=== PATIENT | female | born 1985 | race Caucasian/White ===

== ENCOUNTER → 2024-12-01 16:01 | Outpatient (BNVA) | payer OTHER, SELFPAY | PROVIDERS: Family Provider Nurse Practitioner Family; PCP Nurse Practitioner Family; Visit Provider Nurse Practitioner Family | DX: N39.0 Urinary tract infection, site not specified (principal) | CPT/HCPCS: 81003; 87077; 87086; 87184 ==

== ENCOUNTER 2025-03-09 08:09 | Emergency (ER) | payer OTHER, SELFPAY ==
--- NOTE | 2025-03-09 08:11 | ED_ITS ---
HPI - Abdominal Pain 2 General: Chief Complaint: Vaginal Bleeding Stated Complaint: abd pain, n/v Time Seen by Provider: 03/09/25 08:10 History of Present Illness: 39-year-old female presents emergency ro om with pelvic pain and cramping. Her period began this morning she had gone to the bathroom done a few of the things from the house and began to have sudden onset of severe right flank pain and cramping radiating into her back. Only came to the room she is thrashing on the table unable to find a comfortable position complaining of severe pain in the right flank. She denies any dysuria urgency or frequency. She is able to isolate the pain more to the suprapubic region radiating up into the right flank. She has not noticed any hematuria. She does have a known history of kidney stones. Associated Symptoms: Denies chills, dysuria and fever(s) Related Data Home Medications ?Medication ?Instructions ?Recorded ?Confirmed ibuprofen 200 mg tablet (Advil) 800 mg PO Q6H PRN Feve r Or Pain 03/09/25 03/09/25 Previous Rx's ?Medication ?Instructions ?Recorded diclofenac sodium 75 mg 75 mg PO Q12H PRN pain #20 t abs 03/09/25 tablet,delayed release hydrocodone 5 mg-acetaminophen 325 1 tab PO Q6H PRN pa in #7 tabs 03/09/25 mg tablet Allergies Allergy/AdvReac Type Severity Reaction Status Date / Time No Known Allergies Allergy Verified 03/09/25 08:35 Review of Systems 2 Const: Denies: fever(s) or chills Card: Denies: chest pain Resp: Denies: dyspnea GI: Reports: abdominal pain : Reports: flank pain (Right), vaginal bleeding and pelvic pain; Denies: dysuria, urinary frequency or urinary urgency Musc: Denies: neck pain or back pain Skin/Breast: Denies: rash PFSH ED 2 PFSH: Medical History Pharyngitis Upper respiratory infection Hx of renal calculi Urinary tract infection Family History Other Cancer Diabetes Hypertension Social History Smoking and tobacco/nicotine status: never used tobacco/nicotine Substance/Drug Use: never Household members: significant other and children Housing: House Current occupational status: employed 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 [place] Physical Exam 2 Const: COMMON NORMALS: no acute distress GENERAL APPEARANCE: cooperative and comfortable ORIENTATION/CONSCIOUSNESS: Yes awake, Yes oriented to person, Yes oriented to place and Yes oriented to time HENMT: COMMON NORMALS: normocephalic, atraumatic and hearing grossly normal bilaterally HEAD & SCALP: normocephalic and atraumatic Resp: COMMON NORMALS: normal respiratory effort, No retractions, No use of accessory muscles and clear to auscultation bilaterally AUSCULTATION: clear to auscultation bilaterally Cardio: COMMON NORMALS: regular rate, regular rhythm and No murmurs present (Cardio) RATE: regular rate RHYTHM: regular rhythm GI: COMMON NORMALS: Soft to palpation and No hepatosplenomegaly present A USCULTATION: Yes normoactive bowel sounds PALPATION: Yes Soft to palpation, No Tenderness to palpation present (GI), No Guarding due to palpation present (GI) and Yes No hepatosplenomegaly present Extremity: COMMON NORMALS: normal to inspection, capillary refill normal, no clubbing, cyanosis or edema, no calf tenderness and no pedal edema Neuro: SENSORIUM/ORIENTATION: Yes oriented to person, Yes oriented to place and Yes oriented to time Skin: COMMON NORMALS: no rashes or lesions noted GENERAL SKIN EXAM: no rashes or lesions noted Course 2 Vital Signs: Vital signs: Vital Signs Temperature 98.1 F 03/09/25 08:29 Pulse Rate 62 03/09/25 12:14 Respiratory Rate 16 03/09/25 08:29 Blood Pressure 140/82 03/09/25 09:19 Pulse Oximetry 96 03/09/25 12:14 Oxygen Delivery Me thod Room Air 03/09/25 09:19 MDM - Abdominal Pain Medical Decision Making Mild elevation in white count. According to CT report it difficult admitted for any appendix that is because the radiologist she does not feel there is any sign of inflammation or indications of acute appendicitis in that region on repeat exam she is not having any significant right lower quadrant pain at this time. Urgency episodes have improved with medications given there was some fluid in the pelvis suspect she ruptured an ovarian cyst patient given diclofenac hydrocodone to use as needed follow-up with her primary care doctor. Medical Records I reviewed the patient's medical records. Lab Data I reviewed the patient's lab results. 03/09/25 09:00 03/09/25 09:00 Labs/Radiology: Radiology Impressions Abdomen/Pelvis CT 03/09/25 10:29 IMPRESSION: 1. No hydronephrosis in either kidney. No obstructing renal or ureteral calculi. 2. Trace free fluid in the cul-de-sac. 3. Small esophageal hiatal hernia. 4. No other acute findings. Laboratory Results WBC 13.61 10^3/uL (3.29-11.43) H 03/09/25 09:00 RBC 4.86 10^6/uL (3.85-5.65) 03/09/25 09:00 Hgb 13.80 g/dL (11.27-16.99) 03/09/25 09:00 Hct 43.2 % (36-47) 03/09/25 09:00 MCV 88.9 fl (85-98) 03/09/25 09:00 MCH 28.4 pg (27-33) 03/09/25 09:00 MCHC 31.9 g/dL (30-55) 03/09/25 09:00 RDW 12.8 % (12.1-15.1) 03/09/25 09:00 Plt Count 389 10^3/cmm (157-399) 03/09/25 09:00 MPV 8.8 fL (7.4-10.4) 03/09/25 09:00 Neut % (Auto) 70.1 % 03/09/25 09:00 Lymph % (Auto) 22.0 % 03/09/25 09:00 [place] % (Auto) 6.5 % 03/09/25 09:00 Eos % (Auto) 0.6 % 03/09/25 09:00 Baso % (Auto) 0.4 % 03/09/25 09:00 Neut # (Auto) 9.53 10^3/uL (1.8-7.7) H 03/09/25 09:00 Lymph # (Auto) 3.0 10^3/uL (0.8-4.8) 03/09/25 09:00 [place] # (Auto) 0.9 10^3/uL (0.2-0.9) 03/09/25 09:00 Eos # (Auto) 0.1 10^3/uL (0.0-0.8) 03/09/25 09:00 Baso # (Auto) 0.1 10^3/uL (0.0-0.1) 03/09/25 09:00 Nucleated RBC % (auto) 0 % 03/09/25 09:00 Nucleated RBCs # 0.0 /100WBC 03/09/25 09:00 Sodium 139 mmol/L (136-145) 03/09/25 09:00 Potassium 4.3 mmol/L (3.5-5.1) 03/09/25 09:00 Chloride 105 mmol/L (98-107) 03/09/25 09:00 Carbon Dioxide 19 mmol/L (22-29) L 03/09/25 09:00 Anion Gap 19.3 (5-19) H 03/09/25 09:00 BUN 12 mg/dL (6-20) 03/09/25 09:00 Creatinine 0.7 mg/dL (0.5-0.9) 03/09/25 09:00 GFR Calculation 94.2 mL/min (90-130) 03/09/25 09:00 Glucose 98 mg/dL (65-115) 03/09/25 09:00 Calculated Osmolality 288 mOsm/kg (285-295) 03/09/25 09:00 Calcium 9.1 mg/dL (8.5-10.5) 03/09/25 09:00 Total Bilirubin 0.5 mg/dL (0.15-1.2) 03/09/25 09:00 AST 12 U/L (0-32) 03/09/25 09:00 ALT 17 U/L (0-33) 03/09/25 09:00 Alkaline Phosphatase 89 U/L (35-105) 03/09/25 09:00 Total Protein 7.2 g/dL (6.6-8.7) 03/09/25 09:00 Albumin 3.9 g/dL (3.5-5.2) 03/09/25 09:00 Globulin 3.3 g/dL (1.3-4.6) 03/09/25 09:00 Lipase 15 U/L (13-60) 03/09/25 09:00 HCG, Qual Negative (Negative) 03/09/25 09:00 Urine Color Yellow (Yellow) 03/09/25 09:32 Urine Appearance Clear (CLEAR) 03/09/25 09:32 Urine pH 8.0 (5-7) A 03/09/25 09:32 Ur Specific [place] 1.031 (1.005-1.030) H 03/09/25 09:32 Urine Protein Trace (Negative) A 03/09/25 09:32 Urine Glucose (UA) Negative (Normal) 03/09/25 09:32 Urine Ketones Trace (Negative) 03/09/25 09:32 Urine Blood Negative (Negative) 03/09/25 09:32 Urine Nitrate Negative (Negative) 03/09/25 09:32 Urine Bilirubin Negative (Negative) 03/09/25 09:32 Urine Urobilinogen 1.0 mg/dL (Negative) 03/09/25 09:32 Ur Leukocyte Esterase Negative (Negative) 03/09/25 09:32 Urine RBC 3-5 /hpf (0-2) 03/09/25 09:32 Urine WBC 0-5 /hpf (0-5) 03/09/25 09:32 Ur Squamous Epith Cells 0-5 /hpf (0-5) 03/09/25 09:32 Amorphous Sediment Not Reportable 03/09/25 09:32 Urine Bacteria None seen /hpf (NONE) 03/09/25 09:32 Hyaline Casts 9.91 /lpf 03/09/25 09:32 Urine Yeast Trace /hpf 03/09/25 09:32 All radiology interpretation(s) finalized by discharge Discharge Plan Discharge Patient Disposition: Home Clinical Impression: Menometrorrhagia, Ovarian cyst rupture Condition: Stable Prescriptions: New hydrocodone-acetaminophen 5-325 mg tablet 1 tab PO Q6H PRN (Reason: pain) Qty: 7 0RF diclofenac sodium 75 mg tablet,delayed release (DR/EC) 75 mg PO Q12H PRN (Reason: pain) Qty: 20 0RF No Action ibuprofen [Advil] 200 mg Tablet 800 mg PO Q6H PRN (Reason: Fever Or Pain) Discharge Orders: Discharge ED (Routine); Ordered 03/09/25 Ordered By: Asif Castillo Referrals: CHAPIS Snider, RADIO ENGINEER [Primary Care Provider, Family Practice] Zaire Das FNP [Nurse Practitioner, Family Practice] Discharge Diet: Usual diet Discharge Activity: Increase activity as tolerated Patient Instructions: Opioid Safety, Pain Management, Patient Portal & Uma Instructions Activity Restrictions/Additional Instructions: Thank you for choosing [facility] for your healthcare needs today. It is very important that you follow up as instructed or that you return to the Emergency Department should you have concerns or if your condition changes or worsens in any way. You were seen in the emergency room pelvic pain and cramping. Urine showed trace blood but there was no evidence of a kidney stone on the CT. There was a small amount of fluid in the pelvis this could be from ruptured ovarian cyst given your sudden onset of symptoms suspect that is what the cause of the pain. You are given pain and medicines to use as needed follow-up has not worsening symptoms. Print Language: Vietnamese Coding Level of Care Code ED Correctional Guard for Beverly Stewart
--- OUTSIDE RECORDS SUMMARY | 2025-03-09 08:16 | XMS_ITS | Encounter Summary ---
Author Organization [facility] Address [address] [place] [address] Care Team Providers Care Microbiology Quality Control Technician Name Role Phone Omkar Sepulveda MD Primary Care Provider [phone] Encounter Details Date Type Department Care Team (Latest Contact Info) Description 04/04/2005 Outpatient [facility] Ear, Nose and Throat [address] [place] 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 Gender Identity Not on file Sexual Orientation Not on file documented as of this encounter Plan of Treatment Not on file documented as of this encounter Visit Diagnoses Diagnosis Follow-up examination, following unspecified surgery- Primary documented in this encounter Additional Health Concerns Infection Onset Date Last Indicated Resolved Time R/O COVID-19 05/22/2020 05/22/2020 05/24/2020 3:45 AM CDT R/O COVID-19 08/13/2020 08/13/2020 08/15/2020 2:45 AM 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
--- OUTSIDE RECORDS SUMMARY | 2025-03-09 08:16 | XMS_ITS | Encounter Summary ---
Author Organization [facility] Address [address] [place] [address] Care Team Providers Care Economics Lecturer Name Role Phone Omkar Sepulveda MD Primary Care Provider [phone] Encounter Details Date Type Department Care Team (Latest Contact Info) Description 11/11/2000 Outpatient Historical [facility] [place] [address] [address] Ibrahima Patel DO NO ADDRESS ON FILE Acute upper respiratory infections of unspecified site (Primary Dx) Social History Tobacco Use Types Packs/Day Years Used Date Smoking Tobacco: Never Assessed Comments Unknown Sex and Gender Information Value Date Recorded Sex Assigned at Not on file 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 Gender Identity Not on file Sexual Orientation Not on file documented as of this encounter Plan of Treatment Not on file documented as of this encounter Visit Diagnoses Diagnosis Acute upper respiratory infections of unspecified site- Primary documented in this encounter Additional Health Concerns Infection Onset Date Last Indicated Resolved Time R/O COVID-19 05/22/2020 05/22/2020 05/24/2020 3:45 AM CDT R/O COVID-19 08/13/2020 08/13/2020 08/15/2020 2:45 AM ROTOR WINDER documented as of this encounter Care Teams Economics Lecturer Relationship Specialty Start Date End Date Omkar Sepulveda MD [address] [address] PCP - General Family Practice 03/03/20 documented as of this encounter
--- OUTSIDE RECORDS SUMMARY | 2025-03-09 08:16 | XMS_ITS | Encounter Summary ---
Author Organization [facility] Address [address] [place] [address] Care Team Providers Care Director Business Integration Name Role Phone Omkar Sepulveda MD Primary Care Provider [phone] Encounter Details Date Type Department Care Team (Late st Contact Info) Description 11/01/2007 Outpatient Historical [facility] [place] [address] [facility] [address] [place] [address] Iris Carmona NP NO ADDRESS ON FILE Social History Tobacco Use Types Packs/Day Years Used Date Smoking Tobacco: Never Assessed Comments Unknown Sex and Gender Information Value Date Recorded Sex Assigned at Not on file 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 Pulse: 0. Not dictated. BP: 110/72. Temperature is 97.2. ALLERGIES: PROACTIVE AND CHOCOLATE (RASH). CHIEF COMPLAINT: Swollen lymph nodes and right ear pain. SUBJECTIVE: The patient was up all night with right ear pain, and finally had called her mother during the night. Mother said to put heat on it and it did help to relieve some of the pain. She also took Motrin and was able to get some sleep. She noticed that if she is around a loud speaker it really hurts her ears. OBJECTIVE: GENERAL: Reviewed the nurse's note and concur. HEENT, NECK: Examination shows the right TM is red. It is dull. It is full. The left TM was also red but not as full. Oropharynx is without erythema or exudate. Neck is supple .She does have 1+ cervical adenopathy in the anterior chain, right greater than left. No posterior nodes were palpated. HEART: Normal sinus rate and rhythm. LUNGS: CTA. IMPRESSION: Bilateral otitis media with sinusitis. PLAN: 1. Mother has Vicodin at home that she will give her for pain. 2. We called Zithromax 250 mg Z-Chriss to [facility] to take as directed with food beginning 11/02/2007. 3. Gave her an injection of Rocephin 1 gram here. 4. Suggested mucous relief sinus tablets twice a day for 2 weeks. 5. I want to recheck her at the end of next week when she has finished her antibiotics by mouth. Noadditional cause. Make sure the ear is healing. 6. Otherwise she will return p.r.n. Dejah Carmoan RN-ONEIL Patel D.O. [facility] Electronically Signed by Dejah Carmona RN-ONEIL 11/03/2007 09:12 , rose Jacinto Document #: [id number] cc: documented in this encounter Plan of Treatment Not on file documented as of this encounter Visit Diagnoses Not on filedocumented in this encounter Additional Health Concerns Infection Onset Date Last Indicated Resolved Time R/O COVID-19 05/22/2020 05/22/2020 05/24/2020 3:45 AM CDT R/O COVID-19 08/13/2020 08/13/2020 08/15/2020 2:45 AM FIBREGLASS GUN HAND documented as of this encounter Care Teams Director Business Integration Relationship Specialty Start Date End Date Omkar Sepulveda MD [address] [facility] [address] [place] [phone] PCP - General Family Practice 03/03/20 documented as of this encounter
--- OUTSIDE RECORDS SUMMARY | 2025-03-09 08:16 | XMS_ITS | Encounter Summary ---
Author Organization [facility] Address [address] [place] [address] Care Team Providers Care Market Development Director Name Role Phone Omkar Sepulveda MD Primary Care Provider [phone] Encounter Details Date Type Department Care Team (Latest Contact Info) Description 03/21/2005 Outpatient Historical [facility] Ear, Nose and Throat [address] [place] 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 Gender Identity Not on file Sexual Orientation Not on file documented as of this encounter Plan of Treatment Not on file documented as of this encounter Visit Diagnoses Diagnosis Hypertrophy tonsils/adenoids- Primary Hypertrophy of tonsil with adenoids Chronic tonsillitis documented in this encounter Additional Health Concerns Infection Onset Date Last Indicated Resolved Time R/O COVID-19 05/22/2020 05/22/2020 05/24/2020 3:45 AM CDT R/O COVID-19 08/13/2020 08/13/2020 08/15/2020 2:45 AM SENIOR USER EXPERIENCE ARCHITECT documented as of this encounter Care Teams Market Development Director Relationship Specialty Start Date End Date Omkar Sepulveda MD [address] [facility] [address] [place] [phone] PCP - General Family Practice 03/03/20 documented as of this encounter
--- OUTSIDE RECORDS SUMMARY | 2025-03-09 08:16 | XMS_ITS | Clinical Summary ---
Author Organization [facility] Address [address] [place] [address] Care Team Providers Care Lease Broker Name Role Phone Omkar Sepulveda MD Primary Care Provider +1 [phone] Allergies Active Allergy Reactions Criticality Noted Date Comments Amoxicillin Other (See Comments) 09/21/2018 She gets a bad yeast infection every time she takes amoxicillin doesn't ever want this Nalbuphine Rash,Itching Medium 11/12/2010 Medications ibuprofen (MOTRIN) 200 mg tablet Take 200 mg by mouth every 6 hours as needed for Pain, Mild. Active acetaminophen (TYLENOL) 500 mg tablet Take 500 mg by mouth every 6 hours as needed for Pain, Mild / Temperature. Active rizatriptan (MAXALT SCALE ATTENDANT) 10 mg Tablet, Rapid Dissolve DISSOLVE 1 TABLET ON THE TONGUE EVERY 2 HOURS NEEDED FOR MIGRAINE 12 Tablet 2 0 Active mzzfoa-otfscvru-br ylase DR DOUGLAS) 24,000-76,000-120, 000 unit capsuleIndications :Pancreatic insufficiency Take 2 Capsules by mouth 3 times daily with meals. 180 Capsule 1 0 Active etonogestrel-Ethin yl Estradiol (NuvaRing) 0.12-0.015 mg/24 hr RingIndications:En counter for surveillance of vaginal ring hormonal contraceptive device Insert one ring for 3 weeks, remove for 1 week,repeat again. 3 Ring 3 0 Active promethazine-dextr omethorphan (PHENERGAN-DM) 6.25-15 mg/5 mL syrupIndications:V iral illness Take 5 mL by mouth every 6 hours as needed for Cough. 120 mL 1 0 Active cyclobenzaprine (FLEXERIL) 10 mg tablet Take 1 Tablet (10 mg) by mouth 2 times daily as needed for Spasm. 40 Tablet 1 Active ketorolac tromethamine (TORADOL) 10 mg tablet Take 1 Tablet (10 mg) by mouth every 8 hours as needed for Pain. 20 Tablet 1 Active Active Problems Problem Noted Date Diagnosed Date Back pain 10/05/2012 Hypertrophy of breast 10/05/2012 Depression, 01/21/2011 Supervision of normal first 12/01/2008 Common migraine Immunizations Immunization Administration Dates Next Due (TDVAX)(7 YRS UP) TETANUS AN D DIPHTHERIA TOXOIDS, ADSORBED (2 LF OF TETANUS TOXOID AND 2 LF OF DIPHTHERIA TOXOID), 0.5ML (PF), IM 02/07/2008 Hepatitis B Vaccine 12/21/1998,08/10/1998,1997 INFLUENZA VACCINE QUADRIVALE NT 3 YR UP PF IM 06/20/2019 Influenza Seasonal Unspecifi ed Formulation IM 05/17/2018,07/03/2017 Family History Medical History Relation Name Comments Healthy Brother Healthy Father Heart Disease Maternal Grandfather Breast Cancer Maternal Grandmother Diabetes Maternal Grandmother Healthy Mother Migraines Mother Hypertension Paternal Grandfather Heart Disease Paternal Grandmother Other Paternal Grandmother brain a neurism Relation Name Status Comments Brother Alive Father Alive Maternal Grandfather Maternal Grandmother Alive Mother Alive Paternal Grandfather Alive Paternal Grandmother Alive Social History Tobacco Use Types Packs/Day Years Used Date Smoking Tobacco: Former Cigarettes 0.3 10 0 10/23/2008 - 10/23/2018 Smokeless Tobacco: Never Comments:Quit the second october Alcohol Use Standard Drinks/Week Comments No 0 (1 standard drink = 0.6 oz pure alcohol) week ends until the october, drank vodka Comments No Sex and Gender Information Value Date Recorded Sex Assigned at Not on file 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 Gender Identity Not on file Sexual Orientation Not on file Occupation Industry Job Start Date Job End Date Not on file Not on file Not on file Not on file Last Filed Vital Signs Vital Sign Reading Time Taken Comments Blood Pressure 140/72 12/21/2020 11:02 AM CDT Pulse 122 12/21/2020 11:02 AM CDT Temperature 35.8 C (96.5 F) 12/21/2020 11:02 AM CDT Respiratory Rate 31 12/21/2020 11:0 2 AM CDT Oxygen Saturation 99% 12/21/2020 11: 02 AM CDT Inhaled Oxygen Concentration - - Weight 109.2 kg (240 lb 12.8 oz) 2020 11:02 AM CDT Height 167.6 cm (5' 6 ) 12/21/2020 11:0 2 AM CDT Body Mass Index 38.87 12/21/2020 11:02 AM CDT Plan of Treatment Health Maintenance Due Date Last Done Comments DTAP/TDAP/TD VACCINES (1 - Tdap) 02/08/2008 02/07/2008 HPV/Cotest (21-29) 2008 CERVICAL CANCER SCREENING 2017 HPV/Cotest (30-65) 2017 PAP SMEAR 2017 12/09/2010, 05/08, 12/05/2008, Additional history exists Preventative Visit-Managed Medicaid 03/08/2020 03/07/2019 INFLUENZA VACCINE (#1) 2024 , 06/20/2019, 05/17/2018, Additional history exists HEPATITIS B VACCINES Completed 12/21/1998, 08/10/1998, 06/26/1998 HPV VACCINES Aged Out No longer eligi ble based on patient's age to complete this topic Procedures Procedure Name Priority Date/Time Associated Diagnosis Comments CERV/VAG CYTOPATH, THIN PREP Routine 12/09/2010 8:25 PM CDT from Last 3 Months or Most Recently Relevant to Health Maintenance Results * CERVICAL OR VAGINAL CYTOPATH, THIN PREP (12/09/2010 8:25 PM CDT) PATHOLOGY/CYT OLOGY REPORT [facility] Dept [address] [facility] [address] Patient: EVA LIRACI Accn No: [id number] , [id number] Collected: 12/09/2010 8:25:00 PM All cases except those with a DP prefix are performed by pathologists from [facility] at [facility]. Case type DP is performed by Dr. Jose Alfredo Way, [facility], [facility] [place] [address], [address] [place] [address] (CLIA #[id number]) (Ph. [phone]). CYTOLOGY PUBLIC EVENTS FACILITIES RENTAL MANAGER FINAL REPORT - - THIN PREP PAP History Specimen Type: Endocervical LMP: NOVEMBER 2009 Previous Pap History: WNL Specimen Adequacy Satisfactory for interpretation. The smear lacks endocervical or metaplastic cells. Diagnosis EPITHELIAL CELL ABNORMALITIES. Low grade squamous intraepithelial lesion(LSIL), mild dysplasia present (JENNIFER I). Software Quality Manager/ EDR ANDREEA Pathologist: 12/17/10 Completed by: Elaina Ye M.D. (Electronically signed by) 12/18/10 Comment Colposcopy and/or biopsy as clinically indicated. See www.[facility]p.org for suggested follow-up. Important Info About PAP Smears HPV Testing off the Thin Prep vial can be done as a means of further evaluating the significance of a Thin Prep Report. For information about ordering the HPV test phone Cytology at . Treatment or follow-up recommendations (if any) that are contained within this report are based upon general recommendations as contained in 2001 Consensus Guidelines For Cervical Cytological Abnormalities FREDRICK: December 29, 2001, and are provided as a general guideline rather than as a specific recommendation. Final decisions about the most appropriate treatment and follow-up should be made on an individualized basis by the treating physician in consultation with his/her patient. [facility] 12/09/2010 8:25 PM CDT us Kalin CURIEL PATHOLOGY/CYTOLOGY ORDERABLES Final Result INTERFACE SYSTEM Refer to clinic/hospital department [facility] CLIA# [id number] [address] [place] [address] from Last 3 Months or Most Recently Relevant to Health Maintenance Insurance [facility] [employer] Care Teams Lease Broker Relationship Specialty Start Date End Date Omkar Sepulveda MD [address] [address] PCP - General Family Practice 03/03/20
--- OUTSIDE RECORDS SUMMARY | 2025-03-09 08:16 | XMS_ITS | Encounter Summary ---
Author Organization [facility] Address [address] [place] [address] Care Team Providers Care Crisis Therapist Name Role Phone Omkar Sepulveda MD Primary Care Provider +1 [phone] Encounter Details Date Type Department Care Team (Latest Contact Info) Description 09/11/2003 Outpatient Historical [facility] Medicine [address] [address] Paulo Ahumada MD [address] [address] MED EXAM NEC-ADMIN PURP (Primary Dx) Social History Tobacco Use Types Packs/Day Years Used Date Smoking Tobacco: Never Assessed Comments Unknown Sex and Gender Information Value Date Recorded Sex Assigned at Not on file 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:53 AM FOOD SERVER Gender Identity Not on file Sexual Orientation Not on file documented as of this encounter Plan of Treatment Not on file documented as of this encounter Visit Diagnoses Diagnosis Other general medical examination for administrative purposes- Primary documented in this encounter Additional Health Concerns Infection Onset Date Last Indicated Resolved Time R/O COVID-19 05/22/2020 05/22/2020 05/24/2020 3:45 AM CDT R/O COVID-19 08/13/2020 08/13/2020 08/15/2020 2:45 AM FOOD SERVER documented as of this encounter Care Teams Crisis Therapist Relationship Specialty Start Date End Date Omkar Sepulveda MD [address] [address] PCP - General Family Practice 03/03/20 documented as of this encounter
--- OUTSIDE RECORDS SUMMARY | 2025-03-09 08:16 | XMS_ITS | Encounter Summary ---
Author Organization [facility] Address [address] [place] [address] Care Team Providers Care Correspondence Representative Name Role Phone Omkar Sepulveda MD Primary Care Provider [phone] [phone] Encounter Details Date Type Department Care Team (Latest Contact Info) Description 09/17/2006 Outpatient [facility] Medicine [place] [address] [address] Iris Carmona NP NO ADDRESS ON FILE Adv Eff Med/Biol NEC/NOS (Primary Dx); Unspecified Otitis Media Social History Tobacco Use Types Packs/Day Years Used Date Smoking Tobacco: Never Assessed Comments Unknown Sex and Gender Information Value Date Recorded Sex Assigned at Not on file 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:53 AM DENTAL INSTRUMENT MAKER Gender Identity Not on file Sexual Orientation Not on file documented as of this encounter Plan of Treatment Not on file documented as of this encounter Visit Diagnoses Diagnosis Unspecified adverse effect of other drug, medicinal and biological substance(995.29)- Primary Unspecified adverse effect of other drug, medicinal and biological substance Unspecified otitis media documented in this encounter Additional Health Concerns Infection Onset Date Last Indicated Resolved Time R/O COVID-19 05/22/2020 05/22/2020 05/24/2020 3:45 AM CDT R/O COVID-19 08/13/2020 08/13/2020 08/15/2020 2:45 AM DENTAL INSTRUMENT MAKER documented as of this encounter Care Teams Correspondence Representative Relationship Specialty Start Date End Date Omkar Sepulveda MD [address] [address] PCP - General Family Practice 03/03/20 documented as of this encounter
--- OUTSIDE RECORDS SUMMARY | 2025-03-09 08:16 | XMS_ITS | Patient Health Record ---
Author Organization [facility] Address [address] [place], [place] [address] Care Team Providers Care Audit Analyst Name Role Phone Tomás CORDOBA, Megna Primary Care Provider Keith Martinez MD, Goldy Unavailable [phone] Allergies Allergen (clinical drug ingredient) Drug/Non Drug Allergy documented on EMR Reaction Allergy Type Onset Date Status None or not verifiab le (as is Current Medications) (uncoded) Unknown Allergy Active Reason For Referral No Information Medications Medication SIG (Take, Route, Fr equency, Duration) Notes Start Date End Date Status Maxalt 10 mg 1 tab orally Q2H, prn for 30 day(s) Active Implanon 68 mg 1 ea subcutaneously once for 1 dose(s) Active Problems Problem Type SNOMED Code ICD Code Onset Dates Problem Status W/U Status Risk Notes Problem Sleep dysfunction with sleep stage disturbance (307980500) Dysfunctions associated with sleep stages or arousal from sleep (780.56) Active confirmed Problem Pain in thoracic spine (216815603) Thoracic pain (724.1) Active confirmed Problem 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) Lumbar (w/out myelopathy) intervertebral disc disorder (722.10) Active confirmed Problem Long-term drug therapy (873010322) LONG-TERM USE MEDS NEC (V58.69) Active confirmed r/o substance abuse Problem Spondylolisthesis (962781245) Spondylolisthesis (738.4) Active confirmed Problem Anxiety state (072331142) Anxiety State, other, specified: procedure related (300.09) Active confirmed Problem Displacement of thoracic intervertebral disc without myelopathy (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 [place] [address] [phone] [id number] Adilene Gross Self - patient is the insured Medical (General) History Medical History History ICD Code See prior documentation Surgical History Surgery Date(Month/Year) Tonsillectomy section Moles removed Hospitalization History Reason Date(Month/Year)
--- OUTSIDE RECORDS SUMMARY | 2025-03-09 08:16 | XMS_ITS | Encounter Summary ---
Author Organization [facility] Address [address] [place] [address] Care Team Providers Care Upholsterer Outside Name Role Phone Omkar Sepulveda MD Primary Care Provider [phone] [phone] Encounter Details Date Type Department Care Team (Latest Contact Info) Description 02/06/2005 Outpatient Historical [facility] [address] [place] [address] Lito Gonzales MD NO ADDRESS ON FILE Hypertrophy tonsils/adenoids (Primary Dx); ACUTE TONSILLITIS; CHR TONSILLITIS & ADENOIDITIS Social History Tobacco Use Types Packs/Day Years Used Date Smoking Tobacco: Never Assessed Comments Unknown Sex and Gender Information Value Date Recorded Sex Assigned at Not on file 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:53 AM BALE SEWER Gender Identity Not on file Sexual Orientation Not on file documented as of this encounter Plan of Treatment Not on file documented as of this encounter Visit Diagnoses Diagnosis Hypertrophy tonsils/adenoids- Primary Hypertrophy of tonsil with adenoids Acute tonsillitis Chronic tonsillitis and adenoiditis(474.02) Chronic tonsillitis and adenoiditis documented in this encounter Additional Health Concerns Infection Onset Date Last Indicated Resolved Time R/O COVID-19 05/22/2020 05/22/2020 05/24/2020 3:45 AM CDT R/O COVID-19 08/13/2020 08/13/2020 08/15/2020 2:45 AM BALE SEWER documented as of this encounter Care Teams Upholsterer Outside Relationship Specialty Start Date End Date Omkar Sepulveda MD [address] [address] PCP - General Family Practice 03/03/20 documented as of this encounter
--- OUTSIDE RECORDS SUMMARY | 2025-03-09 08:16 | XMS_ITS | Encounter Summary ---
Author Organization [facility] Address [address] [place] [address] Care Team Providers Care Quality Assurance Supervisor Name Role Phone Omkar Sepulveda MD Primary Care Provider [phone] [phone] Encounter Details Date Type Department Care Team (Latest Contact Info) Description 08/18/2003 Outpatient Historical [facility] Medicine [place] [address] [facility] [address] [place] [address] Paulo Ahumada MD [address] [address] FLU W RESP MANIFEST NEC (Primary Dx); CLASS MIGRAIN W/O MENTN INTRACTABLE Social History Tobacco Use Types Packs/Day Years Used Date Smoking Tobacco: Never Assessed Comments Unknown Sex and Gender Information Value Date Recorded Sex Assigned at Not on file 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:53 AM PASSENGER CAR UPHOLSTERER APPRENTICE Gender Identity Not on file Sexual Orientation Not on file documented as of this encounter Plan of Treatment Not on file documented as of this encounter Visit Diagnoses Diagnosis Influenza with other respiratory manifestations- Primary Migraine with aura, without mention of intractable migraine without mention of status migrainosus documented in this encounter Additional Health Concerns Infection Onset Date Last Indicated Resolved Time R/O COVID-19 05/22/2020 05/22/2020 05/24/2020 3:45 AM CDT R/O COVID-19 08/13/2020 08/13/2020 08/15/2020 2:45 AM PASSENGER CAR UPHOLSTERER APPRENTICE documented as of this encounter Care Teams Quality Assurance Supervisor Relationship Specialty Start Date End Date Omkar Sepulveda MD [address] [phone] PCP - General Family Practice 03/03/20 documented as of this encounter
--- OUTSIDE RECORDS SUMMARY | 2025-03-09 08:16 | XMS_ITS | Encounter Summary ---
Author Organization [facility] Address [address] [place] [address] Care Team Providers Care Associate Account Executive Name Role Phone Omkar Sepulveda MD Primary Care Provider [phone] [phone] Encounter Details Date Type Department Care Team (Latest Contact Info) Description 08/20/1999 Outpatient Historical [facility] Medicine [place] [address] [address] Ibrahima Patel DO NO ADDRESS ON FILE Acute tonsillitis (Primary Dx) Social History Tobacco Use Types Packs/Day Years Used Date Smoking Tobacco: Never Assessed Comments Unknown Sex and Gender Information Value Date Recorded Sex Assigned at Not on file 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:53 AM FOUNDRY PATTERNMAKER Gender Identity Not on file Sexual Orientation Not on file documented as of this encounter Plan of Treatment Not on file documented as of this encounter Visit Diagnoses Diagnosis Acute tonsillitis- Primary documented in this encounter Additional Health Concerns Infection Onset Date Last Indicated Resolved Time R/O COVID-19 05/22/2020 05/22/2020 05/24/2020 3:45 AM CDT R/O COVID-19 08/13/2020 08/13/2020 08/15/2020 2:45 AM FOUNDRY PATTERNMAKER documented as of this encounter Care Teams Associate Account Executive Relationship Specialty Start Date End Date Omkar Sepulveda MD [address] [address] PCP - General Family Practice 03/03/20 documented as of this encounter
--- OUTSIDE RECORDS SUMMARY | 2025-03-09 08:16 | XMS_ITS | Encounter Summary ---
Author Organization [facility] Address [address] [place] [address] Care Team Providers Care Diamond Cleaner Name Role Phone Omkar Sepulveda MD Primary Care Provider [phone] [phone] Encounter Details Date Type Department Care Team (Latest Contact Info) Description 07/15/2007 Outpatient Historical [facility] Medicine [place] [address] [address] Iris Carmona NP NO ADDRESS ON FILE Urinary Tract Infection, Site not Specified (Primary Dx); Abdominal Pain, Right Lower Quadrant; Unspecified Symptom Associated with Female Genital Organs Social History Tobacco Use Types Packs/Day Years Used Date Smoking Tobacco: Never Assessed Comments Unknown Sex and Gender Information Value Date Recorded Sex Assigned at Not on file 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:53 AM BUSINESS INTELLIGENCE DIRECTOR Gender Identity Not on file Sexual Orientation Not on file documented as of this encounter Plan of Treatment Not on file documented as of this encounter Visit Diagnoses Diagnosis Urinary tract infection, site not specified- Primary Abdominal pain, right lower quadrant Unspecified symptom associated with female genital organs documented in this encounter Additional Health Concerns Infection Onset Date Last Indicated Resolved Time R/O COVID-19 05/22/2020 05/22/2020 05/24/2020 3:45 AM CDT R/O COVID-19 08/13/2020 08/13/2020 08/15/2020 2:45 AM BUSINESS INTELLIGENCE DIRECTOR documented as of this encounter Care Teams Diamond Cleaner Relationship Specialty Start Date End Date Omkar Sepulveda MD [address] [address] PCP - General Family Practice 03/03/20 documented as of this encounter
--- OUTSIDE RECORDS SUMMARY | 2025-03-09 08:16 | XMS_ITS | Encounter Summary ---
Author Organization [facility] Address [address] [place] [address] Care Team Providers Care Program Professional Name Role Phone Omkar Sepulveda MD Primary Care Provider [phone] [phone] Encounter Details Date Type Department Care Team (Latest Contact Info) Description 05/29/2004 Outpatient Historical [facility] [address] [phone] Landy Membreno MD NO ADDRESS ON FILE STREP SORE THROAT (Primary Dx) Social History Tobacco Use Types Packs/Day Years Used Date Smoking Tobacco: Never Assessed Comments Unknown Sex and Gender Information Value Date Recorded Sex Assigned at Not on file 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:53 AM OILER BANDER Gender Identity Not on file Sexual Orientation Not on file documented as of this encounter Plan of Treatment Not on file documented as of this encounter Visit Diagnoses Diagnosis Streptococcal sore throat- Primary documented in this encounter Additional Health Concerns Infection Onset Date Last Indicated Resolved Time R/O COVID-19 05/22/2020 05/22/2020 05/24/2020 3:45 AM CDT R/O COVID-19 08/13/2020 08/13/2020 08/15/2020 2:45 AM OILER BANDER documented as of this encounter Care Teams Program Professional Relationship Specialty Start Date End Date Omkar Sepulveda MD [address] [address] PCP - General Family Practice 03/03/20 documented as of this encounter
--- OUTSIDE RECORDS SUMMARY | 2025-03-09 08:16 | XMS_ITS | Encounter Summary ---
Author Organization [facility] Address [address] [place] [address] Care Team Providers Care Marketing Sales Representative Name Role Phone Omkar Sepulveda MD Primary Care Provider [phone] [phone] Encounter Details Date Type Department Care Team (Latest Contact Info) Description 09/04/2005 Outpatient Historical [address] [address] Iris Carmona NP NO ADDRESS ON FILE ACNE NEC (Primary Dx) Social History Tobacco Use Types Packs/Day Years Used Date Smoking Tobacco: Never Assessed Comments Unknown Sex and Gender Information Value Date Recorded Sex Assigned at Not on file 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:53 AM SHEET ROCK TAPER Gender Identity Not on file Sexual Orientation Not on file documented as of this encounter Plan of Treatment Not on file documented as of this encounter Visit Diagnoses Diagnosis Other acne- Primary documented in this encounter Additional Health Concerns Infection Onset Date Last Indicated Resolved Time R/O COVID-19 05/22/2020 05/22/2020 05/24/2020 3:45 AM CDT R/O COVID-19 08/13/2020 08/13/2020 08/15/2020 2:45 AM SHEET ROCK TAPER documented as of this encounter Care Teams Marketing Sales Representative Relationship Specialty Start Date End Date Omkar Sepulveda MD [address] [address] PCP - General Family Practice 03/03/20 documented as of this encounter
--- OUTSIDE RECORDS SUMMARY | 2025-03-09 08:16 | XMS_ITS | Encounter Summary ---
Author Organization [facility] Address [address] [place] [address] Care Team Providers Care Rigger Helper Name Role Phone Omkar Sepulveda MD Primary Care Provider [phone] [phone] Encounter Details Date Type Department Care Team (Latest Contact Info) Description 09/12/2004 Outpatient Historical [facility] Medicine [place] [address] [address] Brynn Lemus, INBOUND SALES MANAGER [address] [place] [phone] STREP SORE THROAT (Primary Dx) Social History Tobacco Use Types Packs/Day Years Used Date Smoking Tobacco: Never Assessed Comments Unknown Sex and Gender Information Value Date Recorded Sex Assigned at Not on file 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:53 AM CLINICAL PSYCHOLOGY TEACHER Gender Identity Not on file Sexual Orientation Not on file documented as of this encounter Plan of Treatment Not on file documented as of this encounter Visit Diagnoses Diagnosis Streptococcal sore throat- Primary documented in this encounter Additional Health Concerns Infection Onset Date Last Indicated Resolved Time R/O COVID-19 05/22/2020 05/22/2020 05/24/2020 3:45 AM CDT R/O COVID-19 08/13/2020 08/13/2020 08/15/2020 2:45 AM CLINICAL PSYCHOLOGY TEACHER documented as of this encounter Care Teams Rigger Helper Relationship Specialty Start Date End Date Omkar Sepulveda MD [address] [phone] PCP - General Family Practice 03/03/20 documented as of this encounter
--- OUTSIDE RECORDS SUMMARY | 2025-03-09 08:16 | XMS_ITS | Encounter Summary ---
Author Organization [facility] Address [address] [place] [address] Care Team Providers Care Record Tester Name Role Phone Omkar Sepulveda MD Primary Care Provider +1 [phone] Encounter Details Date Type Department Care Team (Latest Contact Info) Description 12/17/2005 Outpatient Historical [facility] Medicine [place] [address] [address] Iris Carmona NP NO ADDRESS ON FILE Headache (Primary Dx); Other Diseases of Nasal Cavity and Sinuses Social History Tobacco Use Types Packs/Day Years Used Date Smoking Tobacco: Never Assessed Comments Unknown Sex and Gender Information Value Date Recorded Sex Assigned at Not on file 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:53 AM SHEET ROLLER OPERATOR Gender Identity Not on file Sexual Orientation Not on file documented as of this encounter Plan of Treatment Not on file documented as of this encounter Visit Diagnoses Diagnosis Headache(784.0)- Primary Headache Nasal/sinus dis NEC Other diseases of nasal cavity and sinuses documented in this encounter Additional Health Concerns Infection Onset Date Last Indicated Resolved Time R/O COVID-19 05/22/2020 05/22/2020 05/24/2020 3:45 AM CDT R/O COVID-19 08/13/2020 08/13/2020 08/15/2020 2:45 AM SHEET ROLLER OPERATOR documented as of this encounter Care Teams Record Tester Relationship Specialty Start Date End Date Omkar Sepulveda MD [address] [address] PCP - General Family Practice 03/03/20 documented as of this encounter
--- OUTSIDE RECORDS SUMMARY | 2025-03-09 08:16 | XMS_ITS | Encounter Summary ---
Author Organization [facility] Address [address] [place] [address] Care Team Providers Care Log Pond Worker Name Role Phone Omkar Sepulveda MD Primary Care Provider +1 [phone] Encounter Details Date Type Department Care Team (Latest Contact Info) Description 06/13/2004 Outpatient Historical [facility] Medicine [place] [address] [address] Brynn Lemus, CARD ASSEMBLER [address] [place] [phone] STREP SORE THROAT (Primary Dx) Social History Tobacco Use Types Packs/Day Years Used Date Smoking Tobacco: Never Assessed Comments Unknown Sex and Gender Information Value Date Recorded Sex Assigned at Not on file 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:53 AM SENIOR CUSTOMER SERVICE REPRESENTATIVE Gender Identity Not on file Sexual Orientation Not on file documented as of this encounter Plan of Treatment Not on file documented as of this encounter Visit Diagnoses Diagnosis Streptococcal sore throat- Primary documented in this encounter Additional Health Concerns Infection Onset Date Last Indicated Resolved Time R/O COVID-19 05/22/2020 05/22/2020 05/24/2020 3:45 AM CDT R/O COVID-19 08/13/2020 08/13/2020 08/15/2020 2:45 AM SENIOR CUSTOMER SERVICE REPRESENTATIVE documented as of this encounter Care Teams Log Pond Worker Relationship Specialty Start Date End Date Omkar Sepulveda MD [address] [phone] PCP - General Family Practice 03/03/20 documented as of this encounter
--- OUTSIDE RECORDS SUMMARY | 2025-03-09 08:16 | XMS_ITS | Encounter Summary ---
Author Organization [facility] Address [address] [place] [address] Care Team Providers Care Automobile Upholsterer Apprentice Name Role Phone Omkar Sepulveda MD Primary Care Provider +1 [phone] Encounter Details Date Type Department Care Team (Latest Contact Info) Description 10/26/1998 Outpatient Historical [facility] [address] [address] Ibrahima Patel DO NO ADDRESS ON FILE Contusion of finger (Primary Dx) Social History Tobacco Use Types Packs/Day Years Used Date Smoking Tobacco: Never Assessed Comments Unknown Sex and Gender Information Value Date Recorded Sex Assigned at Not on file 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:53 AM AGRICULTURE DEPARTMENT CHAIR Gender Identity Not on file Sexual Orientation Not on file documented as of this encounter Plan of Treatment Not on file documented as of this encounter Visit Diagnoses Diagnosis Contusion of finger- Primary documented in this encounter Additional Health Concerns Infection Onset Date Last Indicated Resolved Time R/O COVID-19 05/22/2020 05/22/2020 05/24/2020 3:45 AM CDT R/O COVID-19 08/13/2020 08/13/2020 08/15/2020 2:45 AM AGRICULTURE DEPARTMENT CHAIR documented as of this encounter Care Teams Automobile Upholsterer Apprentice Relationship Specialty Start Date End Date Omkar Sepulveda MD [address] [address] PCP - General Family Practice 03/03/20 documented as of this encounter
--- OUTSIDE RECORDS SUMMARY | 2025-03-09 08:16 | XMS_ITS | Encounter Summary ---
Author Organization [facility] Address [address] [place] [address] Care Team Providers Care Equine Intern Name Role Phone Omkar Sepulveda MD Primary Care Provider +1 [phone] Encounter Details Date Type Department Care Team (Latest Contact Info) Description 11/17/2006 Outpatient [facility] Medicine- [address] [place] [phone] Iris Carmona NP NO ADDRESS ON FILE Unspecified Infective Otitis Externa (Primary Dx); Unspecified Otitis Media; Cough Social History Tobacco Use Types Packs/Day Years Used Date Smoking Tobacco: Never Assessed Comments Unknown Sex and Gender Information Value Date Recorded Sex Assigned at Not on file 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:53 AM OPHTHALMIC ASSISTANT Gender Identity Not on file Sexual Orientation Not on file documented as of this encounter Plan of Treatment Not on file documented as of this encounter Visit Diagnoses Diagnosis Infective otitis externa, unspecified- Primary Unspecified otitis media Cough documented in this encounter Additional Health Concerns Infection Onset Date Last Indicated Resolved Time R/O COVID-19 05/22/2020 05/22/2020 05/24/2020 3:45 AM CDT R/O COVID-19 08/13/2020 08/13/2020 08/15/2020 2:45 AM OPHTHALMIC ASSISTANT documented as of this encounter Care Teams Equine Intern Relationship Specialty Start Date End Date Omkar Sepulveda MD [address] [facility] [place] [address] PCP - General Family Practice 03/03/20 documented as of this encounter
--- OUTSIDE RECORDS SUMMARY | 2025-03-09 08:16 | XMS_ITS | Encounter Summary ---
Author Organization [facility] Address [address] [place] [address] Care Team Providers Care Continuous Improvement Coach Name Role Phone Omkar Sepulveda MD Primary Care Provider [phone] [phone] Encounter Details Date Type Department Care Team (Latest Contact Info) Description 12/30/2004 Outpatient Historical [facility] Medicine [place] [address] [phone] Iris Carmona NP NO ADDRESS ON FILE ACUTE TONSILLITIS (Primary Dx) Social History Tobacco Use Types Packs/Day Years Used Date Smoking Tobacco: Never Assessed Comments Unknown Sex and Gender Information Value Date Recorded Sex Assigned at Not on file 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:53 AM ZIPPER MEASURER Gender Identity Not on file Sexual Orientation Not on file documented as of this encounter Plan of Treatment Not on file documented as of this encounter Visit Diagnoses Diagnosis Acute tonsillitis- Primary documented in this encounter Additional Health Concerns Infection Onset Date Last Indicated Resolved Time R/O COVID-19 05/22/2020 05/22/2020 05/24/2020 3:45 AM CDT R/O COVID-19 08/13/2020 08/13/2020 08/15/2020 2:45 AM ZIPPER MEASURER documented as of this encounter Care Teams Continuous Improvement Coach Relationship Specialty Start Date End Date Omkar Sepulveda MD [address] [phone] PCP - General Family Practice 03/03/20 documented as of this encounter
--- OUTSIDE RECORDS SUMMARY | 2025-03-09 08:16 | XMS_ITS | Encounter Summary ---
Author Organization [facility] Address [address] [place] [address] Care Team Providers Care Curb Worker Name Role Phone Omkar Sepulveda MD Primary Care Provider +1 [phone] Encounter Details Date Type Department Care Team (Latest Contact Info) Description 02/24/2001 Outpatient Historical [facility] Medicine [place] [address] [address] Ibrahima Patel DO NO ADDRESS ON FILE Unspecified otitis media (Primary Dx) Social History Tobacco Use Types Packs/Day Years Used Date Smoking Tobacco: Never Assessed Comments Unknown Sex and Gender Information Value Date Recorded Sex Assigned at Not on file 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:53 AM 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 Gender Identity Not on file Sexual Orientation Not on file documented as of this encounter Plan of Treatment Not on file documented as of this encounter Visit Diagnoses Diagnosis Unspecified otitis media- Primary documented in this encounter Additional Health Concerns Infection Onset Date Last Indicated Resolved Time R/O COVID-19 05/22/2020 05/22/2020 05/24/2020 3:45 AM CDT R/O COVID-19 08/13/2020 08/13/2020 08/15/2020 2:45 AM 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 documented as of this encounter Care Teams Curb Worker Relationship Specialty Start Date End Date Omkar Sepulveda MD [address] [address] PCP - General Family Practice 03/03/20 documented as of this encounter
--- OUTSIDE RECORDS SUMMARY | 2025-03-09 08:16 | XMS_ITS | Encounter Summary ---
Author Organization [facility] Address [address] [place] [address] Care Team Providers Care Certification Engineer Name Role Phone Omkar Sepulveda MD Primary Care Provider [phone] [phone] Encounter Details Date Type Department Care Team (Latest Contact Info) Description 03/21/2005 Outpatient [facility] Head and Neck Surgery-[address] [place] [address] [place] [address] Lito Gonzales MD NO ADDRESS ON FILE Hypertrophy tonsils/adenoids (Primary Dx); CHRONIC TONSILLITIS Social History Tobacco Use Types Packs/Day Years Used Date Smoking Tobacco: Never Assessed Comments Unknown Sex and Gender Information Value Date Recorded Sex Assigned at Not on file 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:53 AM LOG HOOKER Gender Identity Not on file Sexual Orientation [...] R/O COVID-19 08/13/2020 08/13/2020 08/15/2020 2:45 AM LOG HOOKER documented as of this encounter Care Teams Certification Engineer Relationship Specialty Start Date End Date Omkar Sepulveda MD [address] [facility] [address] [place] [phone] PCP - General Family Practice 03/03/20 documented as of this encounter
--- OUTSIDE RECORDS SUMMARY | 2025-03-09 08:16 | XMS_ITS | Encounter Summary ---
Author Organization [facility] Address [address] [place] [address] Care Team Providers Care Fly Raiser Lockstitch Name Role Phone Omkar Sepulveda MD Primary Care Provider [phone] [phone] Encounter Details Date Type Department Care Team (Latest Contact Info) Description 12/22/2003 Outpatient Historical [facility] [address] [place] [address] Roscoe Dumont MD [address] [place] [phone] UNSPECIFIED VIRAL INFECTION (Primary Dx) Social History Tobacco Use Types Packs/Day Years Used Date Smoking Tobacco: Never Assessed Comments Unknown Sex and Gender Information Value Date Recorded Sex Assigned at Not on file 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:53 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 Gender Identity Not on file Sexual Orientation Not on file documented as of this encounter Plan of Treatment Not on file documented as of this encounter Visit Diagnoses Diagnosis Unspecified viral infection, in conditions classified elsewhere and of unspecified site- Primary documented in this encounter Additional Health Concerns Infection Onset Date Last Indicated Resolved Time R/O COVID-19 05/22/2020 05/22/2020 05/24/2020 3:45 AM CDT R/O COVID-19 08/13/2020 08/13/2020 08/15/2020 2:45 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 documented as of this encounter Care Teams Fly Raiser Lockstitch Relationship Specialty Start Date End Date Omkar Sepulveda MD [address] [facility] [address] [place] [address] PCP - General Family Practice 03/03/20 documented as of this encounter
--- OUTSIDE RECORDS SUMMARY | 2025-03-09 08:16 | XMS_ITS | Encounter Summary ---
Author Organization [facility] Address [address] [place] [address] Care Team Providers Care Automatic Oven Operator Name Role Phone Omkar Sepulveda MD Primary Care Provider [phone] [phone] Encounter Details Date Type Department Care Team (Latest Contact Info) Description 10/05/2000 Outpatient Historical [facility] Medicine [address] [address] Ibrahima Patel DO NO ADDRESS ON FILE Acute bronchitis (Primary Dx) Social History Tobacco Use Types Packs/Day Years Used Date Smoking Tobacco: Never Assessed Comments Unknown Sex and Gender Information Value Date Recorded Sex Assigned at Not on file 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:53 AM QA CONSULTANT Gender Identity Not on file Sexual Orientation Not on file documented as of this encounter Plan of Treatment Not on file documented as of this encounter Visit Diagnoses Diagnosis Acute bronchitis- Primary documented in this encounter Additional Health Concerns Infection Onset Date Last Indicated Resolved Time R/O COVID-19 05/22/2020 05/22/2020 05/24/2020 3:45 AM CDT R/O COVID-19 08/13/2020 08/13/2020 08/15/2020 2:45 AM QA CONSULTANT documented as of this encounter Care Teams Automatic Oven Operator Relationship Specialty Start Date End Date Omkar Sepulveda MD [address] [address] PCP - General Family Practice 03/03/20 documented as of this encounter
--- OUTSIDE RECORDS SUMMARY | 2025-03-09 08:16 | XMS_ITS | Encounter Summary ---
Author Organization [facility] Address [address] [place] [address] Care Team Providers Care Medical Laboratory Specialist Name Role Phone Omkar Sepulveda MD Primary Care Provider [phone] [phone] Encounter Details Date Type Department Care Team (Latest Contact Info) Description 09/09/2004 Outpatient Historical [facility] [address] [address] Ibrahima Patel DO NO ADDRESS ON FILE STREP SORE THROAT (Primary Dx) Social History Tobacco Use Types Packs/Day Years Used Date Smoking Tobacco: Never Assessed Comments Unknown Sex and Gender Information Value Date Recorded Sex Assigned at Not on file 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:53 AM DIVISION SUPERINTENDENT Gender Identity Not on file Sexual Orientation Not on file documented as of this encounter Plan of Treatment Not on file documented as of this encounter Visit Diagnoses Diagnosis Streptococcal sore throat- Primary documented in this encounter Additional Health Concerns Infection Onset Date Last Indicated Resolved Time R/O COVID-19 05/22/2020 05/22/2020 05/24/2020 3:45 AM CDT R/O COVID-19 08/13/2020 08/13/2020 08/15/2020 2:45 AM DIVISION SUPERINTENDENT documented as of this encounter Care Teams Medical Laboratory Specialist Relationship Specialty Start Date End Date Omkar Sepulveda MD [address] [address] PCP - General Family Practice 03/03/20 documented as of this encounter
--- OUTSIDE RECORDS SUMMARY | 2025-03-09 08:16 | XMS_ITS | Encounter Summary ---
Author Organization [facility] Address [address] [place] [address] Care Team Providers Care Construction Engineer Name Role Phone Omkar Sepulveda MD Primary Care Provider [phone] [phone] Encounter Details Date Type Department Care Team (Late st Contact Info) Description 12/17/2005 Outpatient Historical [facility] Iris Carmona NP NO ADDRESS ON FILE Social History Tobacco Use Types Packs/Day Years Used Date Smoking Tobacco: Never Assessed Comments Unknown Sex and Gender Information Value Date Recorded Sex Assigned at Not on file 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:53 AM ANESTHESIOLOGY CRNA Gender Identity Not on file Sexual Orientation Not on file documented as of this encounter Plan of Treatment Not on file documented as of this encounter Visit Diagnoses Not on filedocumented in this encounter Additional Health Concerns Infection Onset Date Last Indicated Resolved Time R/O COVID-19 05/22/2020 05/22/2020 05/24/2020 3:45 AM CDT R/O COVID-19 08/13/2020 08/13/2020 08/15/2020 2:45 AM ANESTHESIOLOGY CRNA documented as of this encounter Care Teams Construction Engineer Relationship Specialty Start Date End Date Omkar Sepulveda MD [address] [facility] [place] [phone] PCP - General Family Practice 03/03/20 documented as of this encounter
--- OUTSIDE RECORDS SUMMARY | 2025-03-09 08:16 | XMS_ITS | Encounter Summary ---
Author Organization [facility] Address [address] [place] [address] Care Team Providers Care News Reporter Name Role Phone Omkar Sepulveda MD Primary Care Provider [phone] [phone] Encounter Details Date Type Department Care Team (Latest Contact Info) Description 04/18/2004 Outpatient Historical [facility] [address] [address] Iris Carmona NP NO ADDRESS ON FILE FEVER (Primary Dx); STREP SORE THROAT; VOMITING ALONE Social History Tobacco Use Types Packs/Day Years Used Date Smoking Tobacco: Never Assessed Comments Unknown Sex and Gender Information Value Date Recorded Sex Assigned at Not on file 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:53 AM SERVICE STATION CASHIER Gender Identity Not on file Sexual Orientation Not on file documented as of this encounter Plan of Treatment Not on file documented as of this encounter Visit Diagnoses Diagnosis Fever and other physiologic disturbances of temperature regulation- Primary Streptococcal sore throat Vomiting alone documented in this encounter Additional Health Concerns Infection Onset Date Last Indicated Resolved Time R/O COVID-19 05/22/2020 05/22/2020 05/24/2020 3:45 AM CDT R/O COVID-19 08/13/2020 08/13/2020 08/15/2020 2:45 AM SERVICE STATION CASHIER documented as of this encounter Care Teams News Reporter Relationship Specialty Start Date End Date Omkar Sepulveda MD [address] [phone] PCP - General Family Practice 03/03/20 documented as of this encounter
--- OUTSIDE RECORDS SUMMARY | 2025-03-09 08:16 | XMS_ITS | Clinical Summary ---
Author Organization [facility] Address [address] [place] [address] Care Team Providers Care White Washer Piler Name Role Phone Omkar Sepulveda MD Primary Care Provider +1 [phone] Allergies Active Allergy Reactions Criticality Noted Date Comments Amoxicillin Other (See Comments) 09/21/2018 She gets a bad yeast infection every time she takes amoxicillin doesn't ever want this Nalbuphine Rash,Itching Medium 11/12/2010 Medications glleuo-dfzenbxp-q rush KEYES (ANTOINE) 24,000-76,000-120 ,000 unit capsuleIndication s:Pancreatic insufficiency Take 2 Capsules by mouth 3 times daily with meals. 180 Capsule 1 02/28/20 20 Active Additional Information Patient not taking.Reported on 09/09/2023 acetaminophen (TYLENOL) 500 mg tablet Take 500 mg by mouth every 6 hours as needed. Active ibuprofen (MOTRIN) 200 mg tablet Take 200 mg by mouth every 6 hours as needed. Active rizatriptan (MAXALT REHEAT FURNACE OPERATOR) 10 mg Tablet, Rapid Dissolve DISSOLVE 1 TABLET ON THE TONGUE EVERY 2 HOURS NEEDED FOR MIGRAINE 12 Tablet 2 02/12/20 22 Active etonogestrel-Ethi nyl Estradiol (EluRyng) 0.12-0.015 mg/24 hr RingIndications:E ncounter for surveillance of vaginal ring hormonal contraceptive device INSERT 1 RING VAGINALLY FOR 3 WEEKS REMOVE FOR 1 WEEK AND REPEAT AGAIN 3 Ring 3 09/26/19 23 Active tretinoin (RETIN-A) 0.1 % CreamIndications: Acne vulgaris Apply to affected area daily at bedtime. 45 Gram 1 11/03/19 23 Active ketorolac tromethamine (TORADOL) 10 mg tabletIndications :History of kidney stones Take 1 Tablet (10 mg) by mouth every 6 hours as needed for Pain. 20 Tablet 12/11/19 24 Active EPINEPHrine (EPIPEN) 0.3 mg/0.3 mL Auto-InjectorIndi cations:Allergy to alpha-gal Inject 0.3 mL (0.3 mg) by intramuscular injection 1 time daily as needed for Anaphylaxis. 1 Each 1 09/28/19 25 Active Active Problems Problem Noted Date Diagnosed Date Back pain 10/05/2012 Hypertrophy of breast 10/05/2012 Depression, 01/21/2011 Supervision of normal first 12/01/2008 Common migraine Immunizations Immunization Administration Dates Next Due (PFIZER)(12 YR UP) COVID-19 VACCINE - EMERGENCY USE AUTHORIZATION, MRNA, [id number](PF) 30 MCG/0.3 ML IM SUSP 04/17/2021,03/21/2021 (TDVAX)(7 YRS UP) TETANUS AN D DIPHTHERIA [...] Years Used Date Smoking Tobacco: Former Cigarettes Q uit: 10/23/2018 Smokeless Tobacco: Never Tobacco Cessation:Counseling Given: No Comments:Quit smoking: Quit the second week of October Alcohol Use Standard Drinks/Week Comments No 0 (1 standard drink = 0.6 oz pur e alcohol) Comments No Sex and Gender Information Value Date Recorded Sex Assigned at Not on file Legal Sex Female 8:33 AM QUEBRACHO TANNER Gender Identity Not on file Sexual Orientation Not on file Last Filed Vital Signs Vital Sign Reading Time Taken Comments Blood Pressure 110/80 09/09/2023 11:14 AM QUEBRACHO TANNER Pulse 93 09/09/2023 11:14 AM QUEBRACHO TANNER Temperature 36.1 C (97 F) 09/09/2023 11:14 AM QUEBRACHO TANNER Respiratory Rate 23 09/09/2023 11:14 AM QUEBRACHO TANNER Oxygen Saturation 100% 09/09/2023 11:14 AM QUEBRACHO TANNER Inhaled Oxygen Concentration - - Weight 109.8 kg (242 lb) 09/09/2023 11:14 AM QUEBRACHO TANNER Height 167.6 cm (5' 6 ) 09/09/2023 11:14 AM QUEBRACHO TANNER Body Mass Index 39.06 09/09/2023 11:14 AM QUEBRACHO TANNER Plan of Treatment Health Maintenance Due Date Last Done Comments DTAP/TDAP/TD VACCINES (1 - Tdap) 02/08/2008 02/07/2008 HPV/Cotest (21-29) 2008 CERVICAL CANCER SCREENING 2017 HPV/Cotest (30-65) 2017 PAP SMEAR 2017 12/09/2010, 12/2010, 05/23/2010, Additional history exists Preventative Visit-Managed Medicaid 03/08/2020 03/07/2019 COVID-19 Vaccine ( season) 2024 04/17/2021, 03/21/2021 INFLUENZA VACCINE (#1) 2025 , 09/09/2023, 09/02/2022, Additional history exists HEPATITIS B VACCINES Completed 12/21/1998, 12/21/1998, 08/10/1998, Additional history exists HPV VACCINES Aged Out No longer eligi ble based on patient's age to complete this topic Insurance [facility] [id number] Care Teams White Washer Piler Relationship Specialty Start Date End Date Omkar Sepulveda MD [address] [address] PCP - General Family Practice 03/03/20
--- OUTSIDE RECORDS SUMMARY | 2025-03-09 08:16 | XMS_ITS | Encounter Summary ---
Author Organization [facility] Address [address] [place] [address] Care Team Providers Care Support Services Specialist Name Role Phone Omkar Sepulveda MD Primary Care Provider +1 [phone] Encounter Details Date Type Department Care Team (Late st Contact Info) Description 03/03/2008 Outpatient Historical [facility] [address] [place] [address] AMBULANCE, [facility] Social History Tobacco Use Types Packs/Day Years Used Date Smoking Tobacco: Never Assessed Comments No Sex and Gender Information Value Date Recorded Sex Assigned at Not on file 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:53 AM AVIATION MEDICINE SPECIALIST Gender Identity Not on file Sexual Orientation Not on file documented as of this encounter Plan of Treatment Not on file documented as of this encounter Visit Diagnoses Not on filedocumented in this encounter Additional Health Concerns Infection Onset Date Last Indicated Resolved Time R/O COVID-19 05/22/2020 05/22/2020 05/24/2020 3:45 AM CDT R/O COVID-19 08/13/2020 08/13/2020 08/15/2020 2:45 AM AVIATION MEDICINE SPECIALIST documented as of this encounter Care Teams Support Services Specialist Relationship Specialty Start Date End Date Omkar Sepulveda MD [address] [place] [phone] PCP - General Family Practice 03/03/20 documented as of this encounter
[2025-03-09 08:29] VITALS: BP 141/91; PULSE 77; RESP 16; TEMP 36.7; O2SAT 99; BMI 38.7
[2025-03-09 09:11] LABS: Hematocrit 43.2 % (36-47); Hemoglobin 13.80 g/dL (11.27-16.99); Mean Corpuscular HGB Conc 31.9 g/dL (30-55); Mean Corpuscular Hemoglobin 28.4 pg (27-33); Mean Corpuscular Volume 88.9 fl (85-98); Nucleated Red Blood Cells % 0 %; Platelet Count 389 10^3/cmm (157-399); Red Blood Count 4.86 10^6/uL (3.85-5.65); White Blood Count 13.61 10^3/uL (3.29-11.43)
[2025-03-09] MEDS: ondansetron 2 mg/ML SDV 2 mL 4 MG IVP (09:16)
[2025-03-09] MEDS: morphine 4 mg/mL SDV 1 mL IVP (09:16)
[2025-03-09 09:19] VITALS: BP 140/82; PULSE 75; O2SAT 98
[2025-03-09 09:26] LABS: Alanine Aminotransferase 17 U/L (0-33); Albumin Level 3.9 g/dL (3.5-5.2); Alkaline Phosphatase 89 U/L (35-105); Anion Gap 19.3 (5-19); Aspartate Amino Transferase 12 U/L (0-32); Blood Urea Nitrogen 12 mg/dL (6-20); Calcium 9.1 mg/dL (8.5-10.5); Carbon Dioxide 19 mmol/L (22-29); Chloride 105 mmol/L (98-107); Creatinine Clr Calc Pharmacy 137.4479; Globulin 3.3 g/dL (1.3-4.6); Glucose 98 mg/dL (65-115); Lipase 15 U/L (13-60); Osmolality Calculated 288 mOsm/kg (285-295); Potassium 4.3 mmol/L (3.5-5.1); Sodium 139 mmol/L (136-145); Total Protein 7.2 g/dL (6.6-8.7)
[2025-03-09 09:38] LABS: HCG, Serum Qual Negative (Negative)
[2025-03-09 09:58] LABS: Glucose Urine UA Negative (Normal); Nitrate Urine Negative (Negative)
[2025-03-09 10:01] LABS: Add Urine Microscopic? YES
[2025-03-09 10:20] LABS: Specific Gravity, Urine 1.031 (1.005-1.030); UA Slide Review UA Slide Review Perf
--- NOTE | 2025-03-09 10:29 | CT_ITS ---
WS: [id number] CT ABDOMEN PELVIS TECHNIQUE: Noncontrast CT of the abdomen and pelvis with coronal and sagittal reformatted images. CLINICAL INFORMATION: flank pain COMPARISON: 2010 DLP: 1013.[address] scans at [facility] use at least one of these dose optimization techniques: automated exposure control; mA and/or kV adjustment per patient size (includes targeted exams where dose is matched to clinical indication); or iterative reconstruction. FINDINGS: Normal adrenal glands. No hydronephrosis in either kidney. No obstructing renal or ureteral calculi. Trace free fluid in the cul-de-sac. Fatty liver with mild hepatomegaly. Small esophageal hiatal hernia. Normal noncontrast spleen. Normal noncontrast pancreas. Tiny fat-containing umbilical hernia. Normal sigmoid colon. Normal terminal ileum. Appendix is not visualized. Mild disc bulging L4-L5 and L5-S1. No other remarkable findings. CT/CT kidney stone [id number] IMPRESSION: 1. No hydronephrosis in either kidney. No obstructing renal or ureteral calcul i. 2. Trace free fluid in the cul-de-sac. 3. Small esophageal hiatal hernia. 4. No other acute findings.
[2025-03-09 12:01] VITALS: PULSE 57; O2SAT 97
[2025-03-09 12:14] VITALS: PULSE 62; O2SAT 96
== END 2025-03-09 12:27 | disposition home or self-care (01) ==
PROVIDERS: Emergency Provider Family Medicine; PCP Nurse Practitioner Family
DX: N92.1 Excessive and frequent menstruation with irregular cycle (principal); N83.299 Other ovarian cyst, unspecified side
CPT/HCPCS: 74176; 80053; 81001; 83690; 84703; 85025; 96374; 96375; 99285; J1885; J2270; J2405

== ENCOUNTER 2025-04-28 11:46 | Outpatient (CLI) | payer OTHER, SELFPAY ==
[2025-04-28 12:27] LABS: Hematocrit 42.3 % (36-47); Hemoglobin 14.10 g/dL (11.27-16.99); Mean Corpuscular HGB Conc 33.3 g/dL (30-55); Mean Corpuscular Hemoglobin 29.0 pg (27-33); Mean Corpuscular Volume 87.0 fl (85-98); Nucleated Red Blood Cells % 0 %; Platelet Count 368 10^3/cmm (157-399); Red Blood Count 4.86 10^6/uL (3.85-5.65); White Blood Count 10.91 10^3/uL (3.29-11.43)
[2025-04-28 12:32] LABS: Glucose Urine UA Negative (Normal); Nitrate Urine Negative (Negative); Specific Gravity, Urine 1.021 (1.005-1.030)
[2025-04-28 12:43] LABS: Estmated Average Glucose 105; Hemoglobin A1C 5.3 % (4.0-6.0)
[2025-04-28 13:11] LABS: Alanine Aminotransferase 31 U/L (0-33); Albumin Level 4.2 g/dL (3.5-5.2); Alkaline Phosphatase 83 U/L (35-105); Anion Gap 15.1 (5-19); Aspartate Amino Transferase 19 U/L (0-32); Blood Urea Nitrogen 11 mg/dL (6-20); Calcium 9.1 mg/dL (8.5-10.5); Carbon Dioxide 23 mmol/L (22-29); Chloride 104 mmol/L (98-107); Cholesterol 149 mg/dL (0-200); Globulin 2.8 g/dL (1.3-4.6); Glucose 86 mg/dL (65-115); HDL Cholesterol 34 mg/dL (60-100); Osmolality Calculated 285 mOsm/kg (285-295); Potassium 4.1 mmol/L (3.5-5.1); Sodium 138 mmol/L (136-145); Thyroid Stimulating Hormone 1.90 uIU/mL (0.27-4.20); Total Protein 7.0 g/dL (6.6-8.7); Triglycerides 123 mg/dL (0-150)
[2025-04-28 13:35] LABS: Free T4 Free Thyroxine 1.14 ng/dL (0.82-1.77)
== END 2025-04-28 11:47 | disposition home or self-care (01) ==
PROVIDERS: PCP Nurse Practitioner Family; Visit Provider Nurse Practitioner Family
DX: Z12.4 Encounter for screening for malignant neoplasm of cervix (principal)
CPT/HCPCS: 36415; 80053; 80061; 81001; 82306; 83036; 84439; 84443; 85025; 87070; 87205; 87624

== ENCOUNTER 2025-05-12 16:27 | Outpatient (CLI) | payer OTHER, SELFPAY ==
--- NOTE | 2025-05-12 16:30 | USR_ITS ---
PROCEDURE INFORMATION: Exam: US Pelvis, Complete, Non-Obstetric Exam date and time: 05/12/2025 4:41 PM Age: 39 years old Clinical indication: Condition or disease; Ovarian conditions; Type of cyst not specified; Additional info: N83.209 - unspecified ovarian cyst, unspecified side TECHNIQUE: Imaging protocol: Transabdominal pelvic nonobstetric ultrasound. Complete exam. Real time ultrasound with image documentation. 117 image(s) are submitted. COMPARISON: CT kidney stone [id number] 03/09/2025 11:05 AM FINDINGS: Uterus: The uterus measures 7.5 x 3.2 x 3.4 cm with total volume of 43 cc. Left ovary 3.5 x 4 x 3.7 cm with adequate arterial blood flow. Dominant left ovarian follicle with internal septation versus 2 left ovarian cyst are noted. No evidence of free pelvic fluid in the current study. Right ovary is not visualized. Right ovary/adnexa: See Uterus finding. Left ovary/adnexa: See Uterus finding. Intraperitoneal space: See Uterus finding. Urinary bladder: Normal. US/US pelv w/transvag [id number] IMPRESSION: The uterus measures 7.5 x 3.2 x 3.4 cm with total volume of 43 cc. Left ovary 3.5 x 4 x 3.7 cm with adequate arterial blood flow. Dominant left ovarian follicle with internal septation versus 2 left ovarian cyst are noted. No evidence of free pelvic fluid in the current study. Right ovary is not visualized. Endometrial thickness of 3 mm and unremarkable.
== END 2025-05-12 16:28 | disposition home or self-care (01) ==
LOC: RAD 16:27
PROVIDERS: PCP Nurse Practitioner Family; Visit Provider Nurse Practitioner Family
DX: N83.209 Unspecified ovarian cyst, unspecified side (principal); R10.2 Pelvic and perineal pain; Z12.4 Encounter for screening for malignant neoplasm of cervix; N92.1 Excessive and frequent menstruation with irregular cycle; R93.89 Abnormal findings on diagnostic imaging of other specified body structures; N83.02 Follicular cyst of left ovary
CPT/HCPCS: 76830; 76856

== ENCOUNTER → 2025-06-30 16:50 | Outpatient (BNVA) | payer OTHER, SELFPAY | PROVIDERS: PCP Nurse Practitioner Family; Visit Provider Nurse Practitioner Family | DX: S62.661A Nondisplaced fracture of distal phalanx of left index finger, initial encounter for closed fracture (principal); W23.0XXA Caught, crushed, jammed, or pinched between moving objects, initial encounter; M79.89 Other specified soft tissue disorders | CPT/HCPCS: 73140 ==

== ENCOUNTER → 2025-07-05 08:00 | Outpatient (BNVA) | payer OTHER, SELFPAY | PROVIDERS: PCP Nurse Practitioner Family; Visit Provider Physician Assistant | DX: S62.630A Displaced fracture of distal phalanx of right index finger, initial encounter for closed fracture (principal); W23.1XXA Caught, crushed, jammed, or pinched between stationary objects, initial encounter | CPT/HCPCS: 73130 ==

== ENCOUNTER 2025-07-05 09:00 | Outpatient (CLI) | payer OTHER, SELFPAY | END 2025-07-05 09:01 | disposition home or self-care (01) | LOC: SOT 09:01 | PROVIDERS: PCP Nurse Practitioner Family; Visit Provider Physician Assistant | DX: Z46.89 Encounter for fitting and adjustment of other specified devices (principal); S62.630A Displaced fracture of distal phalanx of right index finger, initial encounter for closed fracture; W23.1XXA Caught, crushed, jammed, or pinched between stationary objects, initial encounter | CPT/HCPCS: 97760; L3935 ==

== ENCOUNTER → 2025-07-18 15:21 | Outpatient (BNVA) | payer OTHER, SELFPAY | PROVIDERS: PCP Nurse Practitioner Family; Visit Provider Obstetrics & Gynecology | DX: R10.20 Pelvic and perineal pain unspecified side (principal); N83.292 Other ovarian cyst, left side; N88.8 Other specified noninflammatory disorders of cervix uteri | CPT/HCPCS: 76830 ==